=== PATIENT | female | born 1950 | race Caucasian/White ===

== ENCOUNTER 2018-05-27 12:10 | Observation (INO) | payer BC, OTHER ==
[2018-05-27 13:03] LABS: Absolute Lymphocytes (CBC) 1.5 K/uL (0.7-4.9); Absolute Monocytes 0.3 K/uL (0.1-1.3); Absolute Neutrophil 3.8 K/uL (1.8-8.0); Basophils % 1.3 % (0-1.3); Eosinophils % 2.2 % (0-4.4); Hematocrit 43.4 % (36.0-45.0); Lymphocytes % 25.3 % (15.3-44.8); MCH 29.9 pg (27.0-35.0); MCV 88.4 fL (80-100); MPV 8.2 fL (7.6-11.3); Monocytes % 5.8 % (3.3-12.3); RBC Red Blood Cell Count 4.91 M/uL (3.86-4.86)
[2018-05-27 13:07] LABS: Protime INR 0.96
--- NOTE | 2018-05-27 13:16 | RAD REPORT ---
EXAM DESCRIPTION: CT - CTHCSPWOC - 05/27/2018 1:00 pm CLINICAL HISTORY: Fall, syncopal episode, head and neck injury, breast cancer history COMPARISON: None. TECHNIQUE: Axial 5 mm thick images of the head were obtained. Axial 2 mm thick images of the cervic al spine were obtained with sagittal and coronal reconstruction images generated and reviewed. All CT scans are performed using dose optimization technique as appropriate and may include automated exposure control or mA/KV adjustment according to patient size. FINDINGS: No intracranial hemorrhage, mass, edema or acute intracranial finding. No suspicion for ac jose luis infarction. No extra-axial fluid collections. Mastoid air cells and paranasal sinuses are clear. No globe or orbit abnormality seen. No significant atrophy or chronic ischemic changes seen. Ventricl es are normal size. Posterior fossa assessment is inherently limited. Cervical bodies are normal in height. No subluxation abnormality. C4-5, C5-6 and C6-7 disc space narr owing are present. No fracture or acute bony abnormality. No pathologic bone process. Central canal d etail is inherently limited. Mild right foraminal encroachment seen at C3-4. There is prominent bilat eral bony foraminal encroachment at C4-5 and C5-6. There is significant C5-6 central spinal stenosis. C4-5 is probably stenotic in the central canal. Mild bilateral foraminal encroachment at C6-7. No paraspinal mass or hematoma. A few small nonspecific cervical lymph nodes present. IMPRESSION: No hemorrhage, edema or acute CT Head finding. Advanced cervical spine degenerative change include spinal stenosis and foraminal stenosis as detaile d. No fracture or acute cervical finding.
[2018-05-27 13:28] LABS: ALT/SGPT 28 U/L (12-78); AST/SGOT 21 U/L (15-37); Albumin 4.1 g/dL (3.4-5.0); Alkaline Phosphatase 95 U/L (45-117); BUN Blood Urea Nitrogen 10 mg/dL (7-18); Bicarbonate 29 mmol/L (21-32); Bilirubin Direct < 0.1 mg/dL (0-0.2); Bilirubin Total 0.4 mg/dL (0.2-1.0); Glucose Level 159 mg/dL (74-106); Magnesium 2.1 mg/dL (1.8-2.4); NT PRO-BNP 81 pg/mL (<125); Potassium 3.7 mmol/L (3.5-5.1); Protein, Total 8.3 g/dL (6.4-8.2); Sodium Level 141 mmol/L (136-145); Troponin (Emerg Dept Use Only) < 0.02 ng/mL (0.0-0.045)
[2018-05-27 13:35] LABS: Urine Blood TRACE (NEG); Urine Glucose NEGATIVE (NEG); Urine Protein TRACE (NEG); Urine Specific Gravity 1.015 (1.005-1.030); Urine pH 7.5 (5.0-7.0)
[2018-05-27 13:46] LABS: Urine Bacteria NONE SEEN /HPF (<20); Urine Culture Reflex Order NOT NEEDED; Urine RBC <5 /HPF (NONE SEEN)
[2018-05-27] MEDS ORDERED: AMLODIPINE 5 MG TAB ONE (14:06)
[2018-05-27] MEDS ORDERED: HYDRALAZINE HCL 20 MG/ML VIAL ONE (14:06)
--- NOTE | 2018-05-27 14:12 | ER ---
Nurse's Notes [facility] Name: Emely Sweet Age: 67 yrs Sex: Female : 1950 Arrival Date: 05/27/2018 Time: 12:15 Bed 4 Private MD: Gela Dickerson F Diagnosis: Syncope and collapse Presentation: 05/27 12:35 Presenting complaint: Patient states: I was at home having a BM and I woke up on the la1 floor,the food in the oven was burnt so I don't know how long I was down. Pt states she has not taken her BP meds in a couple days and thinks she may have been straining to have the BM. Transition of care: patient was not received from another setting of care. Onset of symptoms was May 27, 2018. Risk Assessment: Do you want to hurt yourself or someone else? Patient reports no desire to harm self or others. Initial Sepsis Screen: Does the patient meet any 2 criteria? No. Patient's initial sepsis screen is negative. Does the patient have a suspected source of infection? No. Patient's initial sepsis screen is negative. Care prior to arrival: None. 12:35 Method Of Arrival: Ambulatory la1 12:35 Acuity: SASCHA 2 la1 Historical: - Allergies: 12:38 PENICILLINS; la1 12:38 Codeine; la1 12:38 Macrodantin; la1 - Home Meds: 12:43 amlodipine 10 mg tab 1 tab once daily [Active]; metformin 1,000 mg Oral TG24 1 tab 2 la1 times per day [Active]; anastrozole 1 mg oral tab 1 tab once daily [Active]; venlafaxine 75 mg oral cp24 1 cap once daily [Active]; glimepiride 4 mg Oral tab 1 tab once daily [Active]; pravastatin 80 mg oral tab 1 tab once daily [Active]; - PMHx: 12:38 Hypertension; High Cholesterol; Depression; Diabetes - NIDDM; la1 - Immunization history:: Adult Immunizations up to date. - Social history:: Smoking status: Patient/guardian denies using tobacco. - Ebola Screening: : No symptoms or risks identified at this time. Screenin:45 Abuse screen: Denies threats or abuse. Denies injuries from another. Nutritional aj1 screening: No deficits noted. Tuberculosis screening: No symptoms or risk factors identified. Assessment: 12:45 General: Appears in no apparent distress. comfortable, Behavior is calm, cooperative, aj1 appropriate for age. Pain: Denies pain. Neuro: Level of Consciousness is awake, alert, obeys commands, Oriented to person, place, time, situation, Fixer Boarding Room are equal bilaterally Moves all extremities. Full function Gait is steady, Speech is normal, Facial symmetry appears normal, Reports a syncopal episode. Cardiovascular: Denies chest pain, Heart tones S1 S2 present Patient's skin is warm and dry. Rhythm is sinus rhythm. Respiratory: Airway is patent Respiratory effort is even, unlabored, Respiratory pattern is regular, symmetrical. GI: No signs and/or symptoms were reported involving the gastrointestinal system. : No signs and/or symptoms were reported regarding the genitourinary system. EENT: No signs and/or symptoms were reported regarding the EENT system. Derm: No signs and/or symptoms reported regarding the dermatologic system. Skin is pink, warm \T\ dry. normal. Musculoskeletal: No signs and/or symptoms reported regarding the musculoskeletal system. Circulation, motion, and sensation intact. 13:45 Reassessment: Patient appears in no apparent distress at this time. No changes from aj1 previously documented assessment. Patient and/or family updated on plan of care and expected duration. Pain level reassessed. Patient is alert, oriented x 3, equal unlabored respirations, skin warm/dry/pink. 14:43 Reassessment: Patient appears in no apparent distress at this time. No changes from aj1 previously documented assessment. Patient and/or family updated on plan of care and expected duration. Pain level reassessed. Patient is alert, oriented x 3, equal unlabored respirations, skin warm/dry/pink. Vital Signs: 12:38 BP 202 / 79; Pulse 84; Resp 16; Temp 97.1; Pulse Ox 98% on R/A; Weight 93.44 kg; Height la1 5 ft. 4 in. (162.56 cm); 13:30 BP 163 / 68; Pulse 64; Resp 18; Pulse Ox 99% ; aj1 14:01 BP 162 / 70; Pulse 62; Resp 18; Pulse Ox 97% on R/A; la1 14:30 BP 163 / 64; Pulse 55; Resp 18; Pulse Ox 96% on R/A; aj1 12:38 Body Mass Index 35.36 (93.44 kg, 162.56 cm) la1 ED Course: 12:15 Patient arrived in ED. sb2 12:15 Gela Dickerson MD is Private Physician. sb2 12:31 Denny Irizarry PA is PHCP. cp 12:31 Denny Coates MD is Attending Physician. cp 12:37 Triage completed. la1 12:38 Arm band placed on right wrist. la1 12:41 Ayaka Garcia RN is Primary Nurse. aj1 12:45 Patient has correct armband on for positive identification. Bed in low position. Call aj1 light in reach. Side rails up X 1. nuclear monitoring technician on. Pulse ox on. NIBP on. 12:45 No provider procedures requiring assistance completed. Initial lab(s) drawn, by tx, aj1 sent to lab. Inserted saline lock: 20 gauge in left antecubital area, using aseptic technique. Blood collected. 12:53 EKG done, by plastic process technician. reviewed by Denny TAYLOR. 13:00 CT Head C Spine In Process Unspecified. EDMS 14:11 Gela Dickerson MD is Hospitalizing Provider. cp 16:00 Report given to MYKEL Rosales on 4th floor. aj1 Administered Medications: 14:02 CANCELLED (Physician Discretion): hydrALAZINE 5 mg IV at calculated rate once cp 14:12 Not Given (Physician Discretion): amLODIPine 10 mg PO once aj1 Point of Care Testing: Blood Glucose: 12:42 Blood Glucose: 172 mg/dL; aj1 Ranges: Outcome: 14:11 Decision to Hospitalize by Provider. cp 17:49 Patient left the ED. la1 Signatures: Dispatcher [employer] EDMS Ayaka Garcia, RN RN aj1 Seble Seymour aa4 Jerzy Morley RN RN la1 Gayle aGrcia Denny Irizarry PA PA cp Mali Larson sb2 Corrections: (The following items were deleted from the chart) 16:15 15:55 Note: US BEING DONE BEDSIDE IN ER. aa4 sg3
--- NOTE | 2018-05-27 14:12 | EDPHYS ---
Physician Documentation [facility] Name: Emely Sweet Age: 67 yrs Sex: Female : 1950 Arrival Date: 05/27/2018 Time: 12:15 Bed 4 Private MD: Gela Dickerson F ED Physician Denny Coates HPI: 05/27 12:49 This 67 yrs old Female presents to ER via Ambulatory with complaints of cp Passed Out Prior To Arrival. 12:49 The patient has experienced syncope, collapsed. Onset: The symptoms/episode cp began/occurred this morning. Duration: This was a single episode, that lasted an unknown period of time. Context: occurred at home, occurred while the patient was having bowel movement. Just prior to the episode the patient experienced no apparent symptoms. Associated injury: The patient did not suffer any apparent associated injury. Historical: - Allergies: 12:38 PENICILLINS; la1 12:38 Codeine; la1 12:38 Macrodantin; la1 - Home Meds: 12:43 amlodipine 10 mg tab 1 tab once daily [Active]; metformin 1,000 mg Oral TG24 1 tab 2 la1 times per day [Active]; anastrozole 1 mg oral tab 1 tab once daily [Active]; venlafaxine 75 mg oral cp24 1 cap once daily [Active]; glimepiride 4 mg Oral tab 1 tab once daily [Active]; pravastatin 80 mg oral tab 1 tab once daily [Active]; - PMHx: 12:38 Hypertension; High Cholesterol; Depression; Diabetes - NIDDM; la1 - Immunization history:: Adult Immunizations up to date. - Social history:: Smoking status: Patient/guardian denies using tobacco. - Ebola Screening: : No symptoms or risks identified at this time. ROS: 12:55 Constitutional: Negative for body aches, chills, fever, poor PO intake. cp 12:55 Eyes: Negative for injury, pain, redness, and discharge. cp 12:55 ENT: Negative for drainage from ear(s), ear pain, sore throat, difficulty swallowing, difficulty handling secretions. 12:55 Cardiovascular: Negative for chest pain, edema, palpitations. 12:55 Respiratory: Negative for cough, shortness of breath, wheezing. 12:55 Abdomen/GI: Negative for abdominal pain, nausea, vomiting, and diarrhea, anorexia, black/tarry stool, rectal bleeding. 12:55 : Negative for urinary symptoms. 12:55 Skin: Negative for cellulitis, rash. 12:55 Neuro: Positive for syncope, Negative for altered mental status, headache, weakness. 12:55 All other systems are negative. Exam: 13:00 ECG was reviewed by the Attending Physician. cp 13:03 Constitutional: The patient appears in no acute distress, alert, awake, cp non-diaphoretic, non-toxic, well developed, well nourished. 13:03 Head/Face: Normocephalic, atraumatic. cp 13:03 Eyes: Pupils equal round and reactive to light, extra-ocular motions intact. Lids and lashes normal. Conjunctiva and sclera are non-icteric and not injected. Cornea within normal limits. Periorbital areas with no swelling, redness, or edema. ENT: Nares patent. No nasal discharge, no septal abnormalities noted. Tympanic membranes are normal and external auditory canals are clear. Oropharynx with no redness, swelling, or masses, exudates, or evidence of obstruction, uvula midline. Mucous membranes moist. Neck: Trachea midline, no thyromegaly or masses palpated, and no cervical lymphadenopathy. Supple, full range of motion without nuchal rigidity, or vertebral point tenderness. No Meningismus. Chest/axilla: Normal chest wall appearance and motion. Nontender with no deformity. No lesions are appreciated. 13:03 Cardiovascular: Rate: normal, Rhythm: regular, Heart sounds: murmur, not appreciated, rub, not appreciated, gallop, not appreciated, Edema: is not appreciated, JVD: is not appreciated. 13:03 Respiratory: the patient does not display signs of respiratory distress, Respirations: normal, no use of accessory muscles, no retractions, no splinting, no tachypnea, labored breathing, is not present, Breath sounds: are clear throughout, no decreased breath sounds, no stridor, no wheezing. 13:03 Abdomen/GI: Inspection: abdomen appears normal, Bowel sounds: active, all quadrants, Palpation: abdomen is soft and non-tender, in all quadrants, rebound tenderness, is not appreciated, voluntary guarding, is not appreciated, involuntary guarding, is not appreciated. 13:03 Back: pain, is absent, ROM is normal. 13:03 Skin: cellulitis, is not appreciated, no rash present. 13:03 Neuro: Orientation: to person, place \T\ time. Mentation: is normal, Cerebellar function: is grossly normal, Motor: moves all fours, strength is normal, Sensation: is normal. 14:11 : Rectal exam: Stool: brown, Guaiac testing: results were negative for occult blood. Vital Signs: 12:38 BP 202 / 79; Pulse 84; Resp 16; Temp 97.1; Pulse Ox 98% on R/A; Weight 93.44 kg; Height la1 5 ft. 4 in. (162.56 cm); 13:30 BP 163 / 68; Pulse 64; Resp 18; Pulse Ox 99% ; aj1 14:01 BP 162 / 70; Pulse 62; Resp 18; Pulse Ox 97% on R/A; la1 14:30 BP 163 / 64; Pulse 55; Resp 18; Pulse Ox 96% on R/A; aj1 12:38 Body Mass Index 35.36 (93.44 kg, 162.56 cm) la1 MDM: 12:31 Patient medically screened. cp 14:04 Physician consultation: Gela Dickerson MD was called at 14:04, was contacted at 14:04, cp regarding admission, to the telemetry unit. patient's condition. 14:08 Data reviewed: vital signs, nurses notes, lab test result(s), EKG, radiologic studies, cp CT scan, plain films. 14:08 Test interpretation: by ED physician or midlevel provider: ECG, plain radiologic cp studies. 05/27 12:43 Order name: Basic Metabolic Panel; Complete Time: 14: [facility] 05/27 14:00 Interpretation: Normal except: GLUC 159; GFR 71. cp 05/27 12:43 Order name: CBC with Diff; Complete Time: 13:21 aj1 05/27 12:43 Order name: LFT's; Complete Time: 14:00 aj1 05/27 12:43 Order name: Magnesium; Complete Time: 14:00 aj1 05/27 12:43 Order name: NT PRO-BNP; Complete Time: 14:00 aj1 05/27 12:43 Order name: PT-INR; Complete Time: 13:21 aj1 05/27 12:43 Order name: Troponin (emerg Dept Use Only); Complete Time: 14:00 aj1 05/27 12:47 Order name: Urine Microscopic Only; Complete Time: 14:00 cp 05/27 12:47 Order name: CPK; Complete Time: 14:00 cp 05/27 13:31 Order name: Urine Dipstick--Ancillary (enter results); Complete Time: 14:00 bd 05/27 15:07 Order name: Basic Metabolic Panel EDMS 05/27 15:08 Order name: Basic Metabolic Panel EDMS 05/27 15:08 Order name: CBC with Automated Diff EDMS 05/27 15:08 Order name: CBC with Automated Diff EDMS 05/27 12:43 Order name: EKG; Complete Time: 12:44 [facility] 05/27 12:43 Order name: Cardiac monitoring; Complete Time: 12:44 [facility] 05/27 12:47 Order name: CT Head C Spine; Complete Time: 13:21 cp 05/27 13:22 Interpretation: Reviewed report. 05/27 15:03 Order name: CONS Physician Consult EDMS 05/27 15:07 Order name: Regular EDMS 05/27 15:07 Order name: Echo with Doppler EDMS 05/27 15:07 Order name: EKG Electrocardiogram EDMS 05/27 15:07 Order name: EKG Electrocardiogram EDMS 05/27 15:07 Order name: EKG Electrocardiogram EDMS 05/27 15:07 Order name: EKG Electrocardiogram EDMS 05/27 15:08 Order name: Troponin I EDMS 05/27 15:08 Order name: Troponin I EDMS 05/27 15:08 Order name: Troponin I EDMS 05/27 15:08 Order name: Carotid Artery Bilateral EDPR 05/27 12:43 Order name: EKG - Nurse/Tech; Complete Time: 12:44 [facility] 05/27 12:43 Order name: IV Saline Lock; Complete Time: 12:44 [facility] 05/27 12:43 Order name: Labs collected and sent; Complete Time: 12:44 [facility] 05/27 12:43 Order name: O2 Per Protocol; Complete Time: 12:44 [facility] 05/27 12:43 Order name: O2 Sat Monitoring; Complete Time: 12:44 [facility] 05/27 12:47 Order name: Urine Dipstick-Ancillary (obtain specimen); Complete Time: 14:15 cp EC:00 Rate is 66 beats/min. Rhythm is regular. TN interval is prolonged at 228 msec. QRS cp interval is normal. QT interval is normal. Interpreted by me. Reviewed by me. Administered Medications: 14:02 CANCELLED (Physician Discretion): hydrALAZINE 5 mg IV at calculated rate once cp 14:12 Not Given (Physician Discretion): amLODIPine 10 mg PO once aj1 Point of Care Testing: Blood Glucose: 12:42 Blood Glucose: 172 mg/dL; aj1 Ranges: Critical Glucose Levels:Adult <50 mg/dl or >400 mg/dl <40 mg/dl or >180 mg/dl Disposition: 05/27/18 14:11 Hospitalization ordered by Gela Dickerson for Observation. Preliminary diagnosis is Syncope and collapse. - Bed requested for Telemetry/MedSurg (observation). - Status is Observation. la1 - Condition is Stable. - Problem is new. - Symptoms have improved. UTI on Admission? No Addendum: 05/30/2018 06:59 Co-signature as Attending Physician, Denny Coates MD I agree with the assessment and c dolan plan of care. Signatures: Dispatcher [employer] EDAyaka Washington RN RN aj1 Denny Coates MD MD cha Attema, Lee RN RN la1 Denny Irizarry PA PA cp Charlotte Khan RN RN df Corrections: (The following items were deleted from the chart) 05/27 14:02 13:22 hydrALAZINE 5 mg IV at calculated rate once ordered. cp cp 15:41 14:11 Hospitalization Ordered by Gela Dickerson MD for Observation. Preliminary df diagnosis is Syncope and collapse. Bed requested for Telemetry/MedSurg (observation). Status is Observation. Condition is Stable. Problem is new. Symptoms have improved. UTI on Admission? No. cp 17:49 15:41 05/27/2018 14:11 Hospitalization Ordered by Gela Dickerson MD for Observation. la1 Preliminary diagnosis is Syncope and collapse. Bed requested for Telemetry/MedSurg (observation). Status is Observation. Condition is Stable. Problem is new. Symptoms have improved. UTI on Admission? No. df
[2018-05-27] MEDS ORDERED: ONDANSETRON 4 MG/2 ML VIAL IV PRN (15:01)
[2018-05-27] MEDS ORDERED: ACETAMINOPHEN 500 MG TAB PO PRN (15:01)
--- NOTE | 2018-05-27 15:45 | ECHO ---
HEIGHT: ft in WEIGHT: lb oz DATE OF STUDY: 05/27/[address]: Denny Irizarry PAC 2-DIMENSIONAL: YES M.MODE: YES DOPPLER: YES COLOR FLOW: YES TDS: NO PORTABLE: NO DEFINITY: NO BUBBLE STUDY: NO DIAGNOSIS: SYNCOPE CARDIAC HISTORY: CATHERIZATION: NO SURGERY: NO PROSTHETIC VALVE: NO PACEMAKER: NO MEASUREMENTS (cm) DIASTOLIC (NORMALS) SYSTOLIC (NORMALS) IVSd 1.1 (0.6-1.2) LA Diam 3.6 (1.9-4.0) LVEF 66% LVIDd 4.8 (3.5-5.7) LVIDs 3.1 (2.0-3.5) %FS 36% LVPWd 1.1 (0.6-1.2) Ao Diam 2.3 (2.0-3.7) 2 DIMENSIONAL ASSESSMENT: RIGHT ATRIUM: NORAML LEFT ATRIUM: NORMAL RIGHT VENTRICLE: NORMAL LEFT VENTRICLE: NORMAL TRICUSPID VALVE: NORMAL MITRAL VALVE: NORMAL PULMONIC VALVE: NORMAL AORTIC VALVE: MILD SCLEROSIS PERICARDIAL EFFUSION: NONE AORTIC ROOT: NORMAL LEFT VENTRICULAR WALL MOTION: NORAML. DOPPLER/COLOR FLOW: NO AORTIC STENOSIS OR AOTIC REGURGITATION. NORMAL CARDIAC DOPPLER. COMMENTS: NORMAL LEFT VENTRICULAR EJECTION FRACTION. MILD AORTIC SCLEROSIS WITH NO AORTIC STENOSIS OR AORTIC REGURGITATION. TECHNOLOGIST: NEHEMIAS ALLEN
[2018-05-27] MEDS ORDERED: MAGNESIUM HYDROXIDE 8% 30 ML PO PRN (18:46)
[2018-05-27 18:51] VITALS: BMI 34.5
[2018-05-27] MEDS ORDERED: D50W 25 GM/50 ML SYRINGE IV PRN (20:58)
[2018-05-27] MEDS ORDERED: GLUCAGON 1 MG/VIAL IM PRN (20:58)
[2018-05-27] MEDS: INSULIN -REGULAR HUMAN 50 UNIT/0.5 ML ML SQ SCH (21:00)
[2018-05-27] MEDS ORDERED: ATORVASTATIN 10 MG TAB PO SCH (21:00)
[2018-05-27 21:06] VITALS: O2SAT 95
[2018-05-27] MEDS: VENLAFAXINE HCL 75 MG TABLET PO SCH (21:10)
--- NOTE | 2018-05-27 21:51 | RAD REPORT ---
EXAM DESCRIPTION: USCarotid Artery Edcjhaiwo57/14/2018 9:27 pm CLINICAL HISTORY: Syncope COMPARISON: None FINDINGS: The velocity of the right internal carotid artery equals 85 cm/sec. The right ICA/CCA rati o 0.8 The velocity of the left internal carotid artery equals 106 cm/sec. The left ICA/CCA ratio 0.9 Mild plaque is present within the right internal carotid artery. Moderate to marked calcified plaque is present within the left carotid bulb The vertebral arteries demonstrate antegrade flow IMPRESSION: Moderate to marked plaque within the left carotid bulb appears to result in an approxima tely 55-75% stenosis. However the velocities are not significantly elevated. MRA neck is recommended for further evaluation NASCET criteria used. Mild 0-49% stenosis Moderate 50-69% stenosis Severe 70-99% stenosis
--- NOTE | 2018-05-27 22:10 | EKG ---
Test Date: 2018-05-27 Test Time: 12:42:46 Newborn Hearing Screener: ANAT MEASUREMENT RESULTS: Intervals: Rate: 66 OR: 228 QRSD: 92 QT: 408 QTc: 427 Bandera: P: 22 OR: 228 QRS: -22 T: 67 INTERPRETIVE STATEMENTS: Sinus rhythm with 1st degree AV block Minimal voltage criteria for LVH, may be normal variant Nonspecific T wave abnormality Abnormal ECG No previous ECG available for comparison Electronically Signed On 05-27-18 22:10:03 STRAIGHT CUTTER MACHINE by Moncho Mcelroy
--- NOTE | 2018-05-28 05:49 | HP ---
Date of Admission: 05/27/2018 History Of Present Illness: A 67-year-old female presented in the emergency room with a complaint th at she has been constipated, so went to the bathroom and while she was on the commode and she was str aining to release her constipation, she lost consciousness and she found herself on the floor. The p atient does not give and does not know exact time for how long she lost consciousness, but said that was not long. The patient did not have any chest pain, no increased shortness of breath, and had no other complaints. Review of Systems: Cardiovascular: No palpitation. No chest pain. No complaints. Respiratory: No complaint. Gastrointestinal: Constipation as above. No other complaints. Genitourinary: No complaints. Skeletomuscular: No complaints. Neurological: As above. No other complaints. Past Medical History: 1.Type 2 diabetes. 2.Hypertension. 3.Hyperlipidemia. 4.History of depression. Social History: No smoking, alcohol, or IV drug abuse history. Family History: Noncontributory. Medications: Include amlodipine 10 mg p.o. daily, metformin 1000 mg p.o. b.i.d., glimepiride 4 mg p. o. daily, pravastatin 80 mg p.o. daily, venlafaxine 75 mg p.o. daily, and anastrozole 1 mg daily. Allergies: CODEINE, NITROFURANTOIN, AND PENICILLINS. Physical Examination: Vital Signs: Blood pressure 160/70, pulse 64, respiratory rate 18, and temp 99%. Heart: Regular rate and rhythm. Chest: Clear to auscultation. Abdomen: Soft, benign, and nontender. Bowel sounds are normoactive. Extremities: No edema. No cyanosis. Peripheral pulses are felt. Neurological: At the time of interview, the patient is alert and oriented x4. Sensory intact. Jamel r 5/5. Deep tendon reflexes 2/4. Negative Babinski and cranial nerves 2 through 12 intact. Imaging: Head CT of cervical spine showed no acute finding. The patient has some degenerative acevedo es in the cervical spine with spinal stenosis. Echocardiogram, no aortic stenosis or regurg, normal left ventricular ejection fraction, and no ischemic changes. EKG reported to me by ER physician is s howing no ischemic changes. Laboratory Data: CBC nonrevealing. PT and INR are within normal. Chemistry: Glucose 159, GFR 71. Troponin less than 0.02. Urinalysis, nonrevealing at this time. Assessment And Plan: Singular fainting episode, syncope that happened while the patient was strainin g with constipation. Very likely that this was a vasovagal attack episode. However, also we will co nsider hypoglycemia as the patient is diabetic and she is on glimepiride. Other considerations from the standpoint of cardiovascular system and hemodynamics, I think we will proceed her cardiac enzymes . I have consulted Cardiology, put the patient on telemetry. We will repeat also her electrolytes a nd CBC in the morning and we will monitor her blood sugar fingersticks and we will put her on a slidi ng scale. We have ordered an ultrasound of her carotids. Look orders for details. MFS/MODL Voice ID: [id number]
[2018-05-28 07:25] LABS: Absolute Lymphocytes (CBC) 1.9 K/uL (0.7-4.9); Absolute Monocytes 0.4 K/uL (0.1-1.3); Absolute Neutrophil 3.5 K/uL (1.8-8.0); Basophils % 1.5 % (0-1.3); Eosinophils % 2.9 % (0-4.4); Hematocrit 41.9 % (36.0-45.0); Lymphocytes % 31.8 % (15.3-44.8); MCH 29.7 pg (27.0-35.0); MCV 87.5 fL (80-100); MPV 8.7 fL (7.6-11.3); Monocytes % 7.1 % (3.3-12.3); RBC Red Blood Cell Count 4.79 M/uL (3.86-4.86)
[2018-05-28] MEDS: INSULIN -REGULAR HUMAN 50 UNIT/0.5 ML ML SQ SCH ×2 (07:30→12:21)
[2018-05-28 07:33] LABS: BUN Blood Urea Nitrogen 9 mg/dL (7-18); Bicarbonate 27 mmol/L (21-32); Glucose Level 120 mg/dL (74-106); Potassium 3.9 mmol/L (3.5-5.1); Sodium Level 140 mmol/L (136-145)
[2018-05-28] MEDS ORDERED: METFORMIN HCL 500 MG TAB PO SCH (08:00)
[2018-05-28] MEDS ORDERED: ANASTROZOLE 1 MG TAB PO SCH (09:00)
[2018-05-28] MEDS ORDERED: AMLODIPINE 10 MG TAB PO SCH (09:00)
[2018-05-28] MEDS ORDERED: ASPIRIN EC 81 MG TAB PO SCH (09:00)
[2018-05-28] MEDS ORDERED: HOME MED 1 EA UNK (Cyanocobalamin (Vitamin B-12) [Vitamin B-12] 100 MCG) PO SCH (09:00)
[2018-05-28] MEDS ORDERED: INFLUENZA VACCINE (for 3y+) 0.5 ML DOSE IMVAC ONE (10:00)
[2018-05-28] MEDS: VENLAFAXINE HCL 75 MG TABLET PO SCH (10:18)
--- NOTE | 2018-05-28 12:28 | CON ---
Chief Complaint: Syncope. History Of Present Illness: Mrs. Sweet was sitting on the toilet. She was constipated. She held h er breath, Valsalva, strained, and was syncopal she thinks for a brief period of time. No injuries. It is her only episode of syncope ever. She has underlying diabetes, is well treated for that, Dr. Dickerson takes care of that. She uses no tobacco; never had myocardial infarction or stroke. She is treated with glimepiride, amlodipine, Arimidex, pravastatin, venlafaxine, metformin, nebivolol, and v itamin B12. She does not have chest pain or shortness of breath. Her workup includes an echocardiog dang that shows mild aortic sclerosis, no stenosis. The carotid Doppler reveals all normal velocities , but apparently there is a calcified plaque that looked like it might be occlusive; however, with th e velocities being all normal, I would not label this as stenosis or a cause of her syncope. The pat ient is completely asymptomatic. She reports drug intolerance to codeine, nitrofurantoin, and penici llin. Physical Examination: Vital Signs: 5 feet 4, 201 pounds. HEENT: Normal carotids, no bruits. Lungs: Clear. Cardiac: Normal. Abdomen: Soft. Extremities: Normal. Impression: The patient has syncope from Valsalva entering her heart, could have been a vagal respon se as well. This is a very low-risk patient to be discharged home. The carotid Doppler is not somet kylee that requires further workup now, but a carotid Doppler repeated in a year is good. Continuing the aggressive anti-atherosclerosis medicine program she is on is jayashree COLVIN Voice ID: [id number] Report ID: [id number]
--- NOTE | 2018-05-28 12:37 | EKG ---
Test Date: 2018-05-28 Test Time: 09:25:39 Fretted Instrument Repairer: PATRICIA MEASUREMENT RESULTS: Intervals: Rate: 61 MI: 210 QRSD: 88 QT: 420 QTc: 422 Max: P: MI: 210 QRS: 213 T: 86 INTERPRETIVE STATEMENTS: Arm lead reversal, repeat ECG Sinus rhythm with 1st degree AV block Right superior axis deviation Nonspecific T wave abnormality Abnormal ECG Compared to ECG 05/27/2018 12:42:46 Right superior axis now present Left ventricular hypertrophy no longer present T-wave abnormality still present Electronically Signed On 05-28-18 12:36:35 OFFICE ADMIN by Moncho Mcelroy
[2018-05-28 12:56] VITALS: BP 134/64; TEMP 98.6
--- NOTE | 2018-05-29 11:33 | EKG ---
Test Date: 2018-05-28 Test Time: 09:26:16 Caustic Cresylate Shift Superintendent: PATRICIA MEASUREMENT RESULTS: Intervals: Rate: 61 AK: 214 QRSD: 88 QT: 414 QTc: 416 [place]: P: AK: 214 QRS: 213 T: 104 INTERPRETIVE STATEMENTS: Sinus rhythm with 1st degree AV block Right superior axis deviation Nonspecific T wave abnormality Abnormal ECG Compared to ECG 05/28/2018 09:25:39 No significant changes Electronically Signed On 05-29-18 11:33:04 INVESTMENT EXECUTIVE by Moncho Mcelroy
== END 2018-05-28 13:33 | disposition home or self-care (01) ==
LOC: ER 12:10 → ERHOLD 14:58 → 4TH 17:12
PROVIDERS: ADMIT Internal Medicine; ATTEND Internal Medicine
DX: R55 Syncope and collapse (principal); E11.9 Type 2 diabetes mellitus without complications; I10 Essential (primary) hypertension; E78.5 Hyperlipidemia, unspecified; Z23 Encounter for immunization; Z88.0 Allergy status to penicillin
CPT/HCPCS: 36415; 70450; 72125; 80048; 80076; 81003; 81015; 82550; 82962; 83735; 83880; 84484; 85025; 85610; 93005; 93306; 93880; 99284; G0008; G0378; J0360; Q2035

== ENCOUNTER 2023-03-24 06:30 | Day surgery (SDC) | payer OTHER ==
[2023-03-15 09:32] LABS: Absolute Lymphocytes (CBC) 1.9 K/uL (0.7-4.9); Lymphocytes % 21.8 % (15.3-44.8); MCV 85.8 fL (80-100); MPV 7.3 fL (7.6-11.3); Platelets 315 thou/uL (152-406); RBC Red Blood Cell Count 4.43 M/uL (3.86-4.86)
--- NOTE | 2023-03-15 09:32 | RAD REPORT ---
EXAM DESCRIPTION: Sy Chaudhary And Deepa (2 Views)03/15/2023 9:22 am CLINICAL HISTORY: Preop for arteriogram. Hypertension COMPARISON: None FINDINGS: The lungs appear clear of acute infiltrate. The heart is mildly to moderately enlarged IMPRESSION: No acute abnormalities displayed
[2023-03-15 09:35] LABS: Protime INR 0.85
[2023-03-15 09:43] LABS: Potassium 3.7 mEq/L (3.5-5.1)
--- NOTE | 2023-03-15 16:47 | EKG ---
Test Date: 2023-03-15 Test Time: 09:08:55 Camouflage Specialist: JEREMI MEASUREMENT RESULTS: Intervals: Rate: 60 MN: 220 QRSD: 88 QT: 416 QTc: 416 [place]: P: -12 MN: 220 QRS: -24 T: 10 INTERPRETIVE STATEMENTS: Sinus rhythm with 1st degree AV block Minimal voltage criteria for LVH, may be normal variant Possible Anterior infarct, age undetermined Abnormal ECG Compared to ECG 05/28/2018 09:26:16 Left ventricular hypertrophy now present Myocardial infarct finding now present Right superior axis no longer present T-wave abnormality no longer present Electronically Signed On 03-15-23 16:46:04 CDT by Humberto Rome
[2023-03-24] MEDS ORDERED: NA CHLORIDE 0.9% 500 ML ONE (07:20)
[2023-03-24] MEDS ORDERED: ATROPINE SULF 1 MG/10 ML SYR IV ONE (08:03)
[2023-03-24] MEDS ORDERED: FENTANYL CITR 100 MCG/2 ML ONE (08:03)
[2023-03-24] MEDS ORDERED: MIDAZOLAM HCL 2 MG/2 ML INJ ONE (08:03)
[2023-03-24] MEDS ORDERED: LIDOCAINE 1% 20 ML MDV ONE (08:10)
[2023-03-24] MEDS ORDERED: HEPA 1000U/500MLS 2,000 UNIT/1,000 ML BAG IV ONE (08:10)
[2023-03-24 08:34] VITALS: TEMP 97
--- NOTE | 2023-03-24 09:24 | OP ---
Date of Procedure: 03/24/2023 Surgeon: CINDY DAO Procedure Performed: Bilateral selective carotid angiogram. Indication: Carotid stenosis. Access: Right femoral artery 6-Venezuelan closed with 6-Venezuelan Angio-Seal. Complications: None. Bleeding: Less than 20 mL. Description Of Procedure: After risks, benefits, symptoms were explained, patient agreed to procedur e and signed informed consent. Patient was brought into cardiac catheterization laboratory, prepped and draped in usual sterile fashion. Then, I accessed the right femoral artery using micropuncture k it, ultrasound guidance and fluoroscopy, placed a 6-Venezuelan Jarales sheath and then I took a 4-Venezuelan 3DRC catheter, engaged the right common carotid artery, took standard views and left common carotid artery, took standard views and the catheter was removed. Sheath was removed. A 6-Venezuelan Angio-Seal was used for closure with hemostasis. Findings: 1.Right common carotid is normal, the right internal carotid has 40% proximally and right external c arotid is normal. 2.The left common carotid is normal and the left internal carotid proximally is 90% stenosis. Left external carotid has 99% stenosis. Conclusion: Severe left internal carotid artery stenosis. Recommendation: Endarterectomy. /RISHIL Voice ID: [id number] Report ID: [id number]
[2023-03-24 12:25] VITALS: O2SAT 98
[2023-03-24 12:29] VITALS: BP 125/49
== END 2023-03-24 11:30 | disposition home or self-care (01) ==
LOC: CCL 06:30
PROVIDERS: ATTEND Internal Medicine
DX: I65.23 Occlusion and stenosis of bilateral carotid arteries (principal); I51.7 Cardiomegaly; I10 Essential (primary) hypertension; E11.9 Type 2 diabetes mellitus without complications; E78.2 Mixed hyperlipidemia; Z87.891 Personal history of nicotine dependence; Z79.84 Long term (current) use of oral hypoglycemic drugs; Z79.85 Long-term (current) use of injectable non-insulin antidiabetic drugs; Z79.899 Other long term (current) drug therapy; Z88.0 Allergy status to penicillin; Z88.5 Allergy status to narcotic agent; Z82.49 Family history of ischemic heart disease and other diseases of the circulatory system
CPT/HCPCS: 36222; 36415; 71046; 76937; 80048; 82947; 85025; 85610; 85730; 93005; C1760; C1893; G0269; J0461; J2001; J2250; J3010; J7040

== ENCOUNTER 2025-02-04 15:40 | Emergency (ER) | payer OTHER ==
[2025-02-04 16:43] LABS: Absolute Lymphocytes (CBC) 1.4 K/uL (0.7-4.9); Hematocrit 33.1 % (36.0-45.0); Hemoglobin 11.5 g/dL (12.0-15.0); MCH 28.5 pg (27.0-35.0); MCHC 34.6 g/dL (32.0-36.0); MCV 82.4 fL (80-100); MPV 7.0 fL (7.6-11.3); Nucleated RBC Absolute Count 0.0 (0-0); Nucleated Red Blood Cells % 0.2 % (0-0); RBC Red Blood Cell Count 4.01 M/uL (3.86-4.86); White Blood Count 11.20 thou/uL (4.3-10.9)
[2025-02-04 17:21] LABS: ALT/SGPT 24.0 U/L (13-56); AST/SGOT 28.0 U/L (15-37); Albumin 3.2 g/dL (3.4-5.0); Albumin/Globulin Ratio 0.7 (1.1-1.8); Alkaline Phosphatase 94.0 U/L (45-117); Anion Gap 8.4 mEq/L (5.0-15.0); BUN Blood Urea Nitrogen 7.0 mg/dL (7-18); Globulin 4.7 g/dL (2.3-3.5); Glucose Level 111.0 mg/dL (74-106); Potassium 3.4 mEq/L (3.5-5.1)
[2025-02-04 17:27] LABS: Thyroid Stimulating Hormone 61.0 uIU/mL (0.358-3.740)
--- NOTE | 2025-02-04 18:09 | RAD REPORT ---
EXAM: Soft Tissue Neck W/Contr INDICATION: Neck swelling. Hoarseness TECHNIQUE: Helical CT examination of the neck oxin017 cc Isovue-300 IV contrast. Sagittal and coronal reformations were generated. This exam was performed according to our departmental dose-optimization program, which includes automated exposure control, adjustment of the mA and/or kV according to patient size and/or use of iterative reconstruction technique. COMPARISON: None. FINDINGS: 2 cm soft tissue structure right pyriform sinus. The remainder the airway appears unremarkable. 13 mm lymph node with necrotic center lateral to the right jugular chain. This is present at the angl e of the mandible. Inferiorly is an additional 17 mm lymph node. Several additional right lower neck/supraclavicular lymph nodes largest measuring 13 mm Parotid, submandibular and thyroid glands appear normal. Mild enlargement of thyroid gland. No fluid within the visualized sinuses/mastoids. IMPRESSION: 2 cm soft tissue structure right pyriform sinus suspicious for neoplasm. Occasionally this can be a n ormal finding secondary to incomplete distention of the sinus. Several enlarged right neck lymph nodes suspicious for neoplastic involvement.
--- NOTE | 2025-02-04 18:18 | ER ---
Nurse's Notes [facility] Name: Emely Sweet Age: 74 yrs Sex: Female : 1950 Arrival Date: 02/04/2025 Time: 15:40 Bed 15 Private MD: Diagnosis: 2 cm soft tissue structure right pyriform sinus suspicious for neoplasm;Hypothyroidism, unspecified;Acute lymphadenitis of face, head and neck Presentation: 02/04 16:00 Chief complaint: Patient states: I have had a hoarse voice for the past month and I jb4 noticed my neck was swelling on both sides that started today. Coronavirus screen: At this time, the client does not indicate any symptoms associated with coronavirus-19. Ebola Screen: No symptoms or risks identified at this time. Initial Sepsis Screen: Does the patient meet any 2 criteria? No. Patient's initial sepsis screen is negative. Does the patient have a suspected source of infection? No. Patient's initial sepsis screen is negative. Risk Assessment: Do you want to hurt yourself or someone else? Patient reports no desire to harm self or others. Onset of symptoms was January 04, 2025. Transition of care: patient was not received from another setting of care. 16:00 Method Of Arrival: Ambulatory jb4 16:00 Acuity: SASCHA 3 jb4 Triage Assessment: 16:03 General: Appears in no apparent distress. comfortable, Behavior is calm, cooperative, jb4 appropriate for age. Pain: Denies pain. Neuro: Level of Consciousness is awake, alert, obeys commands, Oriented to person, place, time, situation. Cardiovascular: Patient's skin is warm and dry. Respiratory: Airway is patent Respiratory effort is even, unlabored, Respiratory pattern is regular, symmetrical. Derm: Skin is intact, Skin is pink, warm \T\ dry. Musculoskeletal: Circulation, motion, and sensation intact. Range of motion: intact in all extremities, Reports swelling in the neck. Historical: - Allergies: 16:03 PENICILLINS; jb4 16:03 Codeine; jb4 16:03 Macrodantin; jb4 - PMHx: 16:03 Depression; Diabetes - NIDDM; Hypertension; High Cholesterol; jb4 - Immunization history:: Adult Immunizations up to date. - Infectious Disease History:: Denies. - Social history:: Smoking status: Patient denies any tobacco usage or history of. Screenin:07 [facility] ED Fall Risk Assessment (Adult) History of falling in the last 3 months, jb4 including since admission No falls in past 3 months (0 pts) Confusion or Disorientation No (0 pts) Intoxicated or Sedated No (0 pts) Impaired Gait No (0 pts) Mobility Assist Device Used No (0 pt) Altered Elimination No (0 pt) Score/Fall Risk Level 0 - 2 = Low Risk Oriented to surroundings, Maintained a safe environment. Abuse screen: Denies threats or abuse. Nutritional screening: No deficits noted. Tuberculosis screening: No symptoms or risk factors identified. Assessment: 16:07 Reassessment: see triage assessment. jb4 16:53 Reassessment: Patient appears in no apparent distress at this time. Patient and/or jb4 family updated on plan of care and expected duration. Pain level reassessed. Patient is alert, oriented x 3, equal unlabored respirations, skin warm/dry/pink. 18:43 Reassessment: Patient appears in no apparent distress at this time. Patient and/or jb4 family updated on plan of care and expected duration. Pain level reassessed. Patient is alert, oriented x 3, equal unlabored respirations, skin warm/dry/pink. Vital Signs: 16:00 BP 145 / 66; Pulse 85; Resp 16; Temp 98.5(O); Pulse Ox 97% on R/A; Weight 81.65 kg; jb4 Height 5 ft. 4 in. ; Pain 0/10; 16:53 BP 134 / 63; Pulse 61; Resp 16; Pulse Ox 97% on R/A; jb4 18:43 BP 144 / 74; Pulse 60; Resp 16; Pulse Ox 95% on R/A; jb4 16:00 Body Mass Index 30.90 (81.65 kg, 162.56 cm) jb4 16:00 Pain Scale: Adult jb4 ED Course: 15:43 Patient arrived in ED. ts1 15:45 Shalini [facility]C [facility] kb 15:45 Bonilla Diaz MD is Attending Physician. kb 15:58 Mulugeta Chaudhary, MYKEL is Primary Nurse. jb4 16:03 Triage completed. jb4 16:03 Arm band placed on right wrist. jb4 16:07 Patient has correct armband on for positive identification. Bed in low position. Call jb4 light in reach. Side rails up X 1. Provided Education on: plan of care. 16:07 No provider procedures requiring assistance completed. jb4 16:30 Initial lab(s) drawn, by me, sent to lab. Inserted saline lock: 20 gauge in right pm7 antecubital area, using aseptic technique. Blood collected. Flushed with 10 mL NS. 16:31 TSH Sent. pm7 16:31 CMP Sent. pm7 16:31 CBC with Diff Sent. pm7 17:55 CT Soft Tissue Neck W/contr In Process Unspecified. EDMS 18:43 IV discontinued, intact, bleeding controlled, No redness/swelling at site. Pressure jb4 dressing applied. Administered Medications: No medications were administered Medication: 16:07 VIS not applicable for this client. jb4 Outcome: 18:18 Discharge ordered by . kb 18:43 Discharged to home ambulatory, with family, jb4 18:43 Condition: stable 18:43 Discharge instructions given to patient, Instructed on discharge instructions, follow up and referral plans. medication usage, Demonstrated understanding of instructions, follow-up care, medications, Prescriptions given X 1, 18:44 Patient left the ED. jb4 Signatures: Dispatcher [employer] EDMS Shalini Garcia, MERGERS AND ACQUISITIONS MANAGER-C MERGERS AND ACQUISITIONS MANAGER-Mulugeta Miguel, RN RN jb4 Columba Abad PAS PAS ts1 Mera Dixon pm7
--- NOTE | 2025-02-04 18:18 | EDPHYS ---
Physician Documentation [facility] Name: Emely Sweet Age: 74 yrs Sex: Female : 1950 Arrival Date: 02/04/2025 Time: 15:40 Bed 15 Private MD: ED Physician Bonilla Diaz HPI: 02/04 17:13 This 74 yrs old Female presents to ER via Ambulatory with complaints of Neck Swelling. kb 18:15 Pt is a 74 year old female who presents for hoarseness, constipation, fatigue, sore kb throat, malaise for over 2 months. States she was started on levothyroxine 1 month ago and just had her dose increased last week. States she noticed some swelling to her neck today so she came in for evaluation. Denies shortness of breath.. Historical: - Allergies: 16:03 PENICILLINS; jb4 16:03 Codeine; jb4 16:03 Macrodantin; jb4 - PMHx: 16:03 Depression; Diabetes - NIDDM; Hypertension; High Cholesterol; jb4 - Immunization history:: Adult Immunizations up to date. - Infectious Disease History:: Denies. - Social history:: Smoking status: Patient denies any tobacco usage or history of. ROS: 18:16 Constitutional: As per HPI kb Exam: 18:16 Constitutional: This is a well developed, well nourished patient who is awake, alert, kb and in no acute distress. Head/Face: Normocephalic, atraumatic. ENT: Moist Mucous membranes Cardiovascular: Regular rate Respiratory: Respirations even and unlabored. No increased work of breathing. Talking in full sentences Skin: Warm, dry with normal turgor. Normal color. MS/ Extremity: Pulses equal, no cyanosis. Neurovascular intact. Full, normal range of motion. Neuro: Awake and alert, GCS 15, oriented to person, place, time, and situation. 18:16 Neck: Trachea: is midline with no obvious abnormalities, ROM/movement: is normal, Lymph nodes: lymphadenopathy is appreciated, anterior cervical nodes, Vital Signs: 16:00 BP 145 / 66; Pulse 85; Resp 16; Temp 98.5(O); Pulse Ox 97% on R/A; Weight 81.65 kg; jb4 Height 5 ft. 4 in. ; Pain 0/10; 16:53 BP 134 / 63; Pulse 61; Resp 16; Pulse Ox 97% on R/A; jb4 18:43 BP 144 / 74; Pulse 60; Resp 16; Pulse Ox 95% on R/A; jb4 16:00 Body Mass Index 30.90 (81.65 kg, 162.56 cm) jb4 16:00 Pain Scale: Adult jb4 MDM: 15:46 Medical Screening Exam initiated kb 18:19 Differential diagnosis: Abscess, lymphadenopathy, malignancy, goiter. Data reviewed: kb vital signs, nurses notes. Consideration of Admission/Observation Escalation of care including admission/observation considered. Admission considered but patient has appointment with Dr. Vega for follow-up scheduled for next week. Discussed case with Dr. Diaz who recommends follow-up as planned with a prescription for clindamycin. Management of patient was discussed with the following: Dr. Diaz. Historians other than the Patient: Spouse/Significant Other: Spouse. Counseling: I had a detailed discussion with the patient and/or guardian regarding the historical points, exam findings, and any diagnostic results supporting the discharge/admit diagnosis, lab results, radiology results, the need for outpatient follow up, an ENT specialist, to return to the emergency department if symptoms worsen or persist or if there are any questions or concerns that arise at home. 02/04 16:11 Order name: CBC with Diff; Complete Time: 16:47 kb 02/04 16:11 Order name: CMP; Complete Time: 17:45 kb 02/04 16:11 Order name: TSH; Complete Time: 17:45 kb 02/04 17:29 Order name: T4 Free; Complete Time: 17:45 EDMS 02/04 16:11 Order name: CT Soft Tissue Neck W/contr; Complete Time: 18:10 kb 02/04 16:11 Order name: IV Start; Complete Time: 16:31 kb Administered Medications: No medications were administered Disposition: 18:48 Co-signature as Attending Physician, Bonilla Diaz MD I reviewed the patient's care rn provided by the Advanced Practice Provider and agree with the diagnosis and treatment plan. Disposition Summary: 02/04/25 18:18 Discharge Ordered Notes: Location: Home kb Condition: Stable kb Diagnosis - 2 cm soft tissue structure right pyriform sinus suspicious for neoplasm kb - Hypothyroidism, unspecified kb - Acute lymphadenitis of face, head and neck kb Followup: kb - With: Emergency Department - When: As needed - Reason: Worsening of condition Followup: kb - With: Private Physician - When: 2 - 3 days - Reason: Recheck today's complaints, Continuance of care, Re-evaluation by your physician Discharge Instructions: - Discharge Summary Sheet kb - Hypothyroidism kb - Lymphadenopathy kb Forms: - Medication Reconciliation Form kb - Antibiotic Education kb - Prescription Opioid Use kb - Patient Portal Instructions kb - Leadership Thank You Letter kb Prescriptions: - Clindamycin HCl 300 mg Oral Capsule - take 1 capsule ORAL route every 6 hours for 10 days; 40 capsule; Refills: 0, kb Product Selection Permitted Signatures: Dispatcher [employer] EDMS Shalini Garcia, ALISTAIR-C SKEIN MERCERIZING MACHINE OPERATOR-Bonilla Leyva MD MD rn Bryson, James, RN RN jb4
[2025-02-04 18:59] VITALS: TEMP 98.5
[2025-02-04 19:03] VITALS: BP 144/74; O2SAT 95
== END 2025-02-04 18:44 | disposition home or self-care (01) ==
LOC: ER 15:40
DX: L04.0 Acute lymphadenitis of face, head and neck (principal); E03.9 Hypothyroidism, unspecified
CPT/HCPCS: 85025; 36415; 84443; 84439; 80053; 70491; 99284; Q9967

== ENCOUNTER → 2025-02-19 | Day surgery (SDC) | payer OTHER ==
--- NOTE | 2025-02-19 11:15 | RAD REPORT ---
PROCEDURE: ULTRASOUND GUIDED BIOPSY Pre-procedure diagnosis: Right cervical chain lymphadenopathy Post-procedure diagnosis: Same as above. CLINICAL INDICATION: R59.9 COMPLICATIONS: No immediate complications. IMPRESSION: Percutaneous ultrasound-guided Coaxial core needle biopsy of enlarged right cervical chain lymph node PROCEDURE DETAILS: Consent: Informed consent for the procedure including risks, benefits and alternatives was obtained a nd time-out was performed prior to the procedure. Preparation: Prepped and draped in sterile fashion. Sedation: None Biopsy: Local anesthesia was administered. Under ultrasound guidance, the 17 gauge coaxial needle and 18 gauge core biopsy needle was advanced to the target and biopsy was performed. The biopsy needle was removed and a sterile dressing was applied. [id number]. Number of specimens: 5 On-site biopsy touch preparation: None. Additional sampling description: None. Preliminary assessment of sample adequacy: Not applicable. Tract embolization: None. Post-biopsy imaging findings: No immediate complications seen. Contrast used: None. Estimated blood loss: Less than 10 mL.
== END ==
LOC: FNA 09:00
PROVIDERS: ATTEND Nurse Practitioner Family
PROC: 07B13ZX Excision of Right Neck Lymphatic, Percutaneous Approach, Diagnostic (ICD-10-PCS; principal; 2025-02-19)
DX: D48.7 Neoplasm of uncertain behavior of other specified sites (principal); R59.9 Enlarged lymph nodes, unspecified
CPT/HCPCS: 88305

== ENCOUNTER → 2025-03-09 | Day surgery (SDC) | payer OTHER ==
--- NOTE | 2025-03-09 11:40 | RAD REPORT ---
THYROID NODULE FNA PREPROCEDURE DIAGNOSIS: Right thyroid enlargement E07.9 PROCEDURE: Right thyroid nodule FNA. SPECIMEN: 5 - 25-gauge FNA specimens of the right lobe of thyroid. Additional single 18-gauge core b iopsy was also performed. TECHNIQUE: Prior to the procedure , the risks and benefits of a thyroid FNA were explained with the patient regla jean consented fully to the procedure. Real-time ultrasound was used to identify the thyroid, which has a relatively diffuse enlargement pat tern rather than a discrete nodule.. The neck was then prepped and draped in the usual sterile fashion. Lidocaine was used to anesthetize the skin and soft tissues down towards the thyroid nodule. 5 separa te 25-gauge needles were then placed using ultrasound guidance into the largest portion of the right thyroid lobe with nodular contour and specimen was obtained within the needle using a to and fr o motion. Additional 18-gauge core biopsy was then performed of the same region. These needles were placed in solution provided by pathology. The patient tolerated the procedure well without immediate post procedure complication. IMPRESSION: Technically successful ultrasound-guided FNA procedure enlarged right thyroid.
== END ==
LOC: FNA 08:47
PROVIDERS: ATTEND Nurse Practitioner Family
DX: C73 Malignant neoplasm of thyroid gland (principal)
CPT/HCPCS: 10006; 88162; 88305